=== PATIENT | female | born 1990 | race Caucasian/White ===

== ENCOUNTER 2017-10-06 20:03 | Emergency (ER) | payer MEDICAID, OTHER ==
[~2017-10-06] VITALS: Ht 154.9 cm; Wt 90.7 kg
[2017-10-06] MEDS ORDERED: METOCLOPRAMIDE 10MG TABLET PO ONE (21:30)
[2017-10-06] MEDS ORDERED: PLEASE ENTER ALLERGIES MC SCH (21:30)
[2017-10-06] MEDS ORDERED: IBUPROFEN 200 MG TABLET PO ONE (21:30)
[2017-10-06] MEDS ORDERED: SUMATRIPTAN 6MG/0.5ML SQ ONE ×2 (21:30→21:33)
[2017-10-06] MEDS ORDERED: IBUPROFEN 200 MG TABLET ONE (21:33)
[2017-10-06 22:01] LABS: BASOPHILS # (AUTO) 0.07 x10^3/uL (0-0.1); BASOPHILS % (AUTO) 1 % (0-1); EOSINOPHILS # (AUTO) 0.28 x10^3/uL (0-0.4); EOSINOPHILS % (AUTO) 2 % (1-7); LYMPHOCYTES # (AUTO) 4.31 x10^3/uL (1-3.4); LYMPHOCYTES % (AUTO) 37 % (22-44); MD NO; MEAN CORPUSCULAR HEMOGLOBIN 28.7 pg (27.0-34.8); MEAN CORPUSCULAR HGB CONC 33.4 g/dL (32.4-35.8); MEAN PLATELET VOLUME 8.4 fL (7.4-10.4); MONOCYTES # (AUTO) 0.62 x10^3/uL (0.2-0.8); MONOCYTES % (AUTO) 5 % (2-9); NEUTROPHILS # (AUTO) 6.34 x10^3/uL (1.8-6.8); NEUTROPHILS % (AUTO) 55 % (42-75); PLATELET COUNT 371 x10^3/uL (130-400); RED BLOOD COUNT 5.04 x10^6/uL (3.82-5.3); RED CELL DISTRIBUTION WIDTH 15.2 % (9.6-15.2)
[2017-10-06 22:09] LABS: ANION GAP 8 mmol/L (5-15); CALCIUM 8.6 mg/dL (8.5-10.1); CHLORIDE 111 mmol/L (98-107); CREATININE 0.54 mg/dL (0.55-1.02)
[2017-10-06 22:44] LABS: HCT (SEDRATE) 43.4 % (34.6-47.8)
[2017-10-06 23:48] VITALS: BP 131/88
== END 2017-10-06 23:50 | disposition home or self-care (01) ==
LOC: ED 23:31
DX: H54.62 Unqualified visual loss, left eye, normal vision right eye (principal); G43.119 Migraine with aura, intractable, without status migrainosus; H49.9 Unspecified paralytic strabismus; Z88.0 Allergy status to penicillin; Z88.1 Allergy status to other antibiotic agents
CPT/HCPCS: 36415; 70450; 80048; 82040; 84703; 85025; 85651; 96372; 99285; J3030

== ENCOUNTER 2017-11-24 15:11 | Emergency (ER) | payer MEDICAID ==
[~2017-11-24] VITALS: Ht 154.9 cm; Wt 92.8 kg
[2017-11-24] MEDS ORDERED: SODIUM CHLORIDE FLUSH 10ML SYR IVF ONE (16:00)
[2017-11-24 16:08] LABS: BASOPHILS # (AUTO) 0.04 x10^3/uL (0-0.1); BASOPHILS % (AUTO) 0 % (0-1); EOSINOPHILS # (AUTO) 0.06 x10^3/uL (0-0.4); EOSINOPHILS % (AUTO) 0 % (1-7); LYMPHOCYTES # (AUTO) 2.81 x10^3/uL (1-3.4); LYMPHOCYTES % (AUTO) 18 % (22-44); MD NO; MEAN CORPUSCULAR HGB CONC 34.4 g/dL (32.4-35.8); MEAN CORPUSCULAR VOLUME 87.1 fL (80-100); MEAN PLATELET VOLUME 8.5 fL (7.4-10.4); MONOCYTES # (AUTO) 0.72 x10^3/uL (0.2-0.8); MONOCYTES % (AUTO) 5 % (2-9); NEUTROPHILS # (AUTO) 12.05 x10^3/uL (1.8-6.8); NEUTROPHILS % (AUTO) 77 % (42-75); PLATELET COUNT 327 x10^3/uL (130-400); RED BLOOD COUNT 4.82 x10^6/uL (3.82-5.3); RED CELL DISTRIBUTION WIDTH 14.9 % (9.6-15.2)
[2017-11-24 16:22] LABS: ALBUMIN 3.9 g/dL (3.4-5.0); ANION GAP 7 mmol/L (5-15); CALCIUM 9.1 mg/dL (8.5-10.1); CHLORIDE 107 mmol/L (98-107); CREATININE 0.55 mg/dL (0.55-1.02)
[2017-11-24] MEDS ORDERED: OMNIPAQUE 350 MG/ML, 100ML BOTTLE ONE (17:07)
[2017-11-24] MEDS ORDERED: DEXAMETHASONE 4 MG/ML, 1ML IVPush ONE (18:30)
[2017-11-24] MEDS ORDERED: VANCOMYCIN PER PHARMACY MC PRN (18:30)
[2017-11-24] MEDS ORDERED: PHARMACOKINETIC CONSULTATION MC ONE (18:30)
[2017-11-24] MEDS ORDERED: METRONIDAZOLE PMX 500MG/100ML 100 ML IV ONE (18:30)
[2017-11-24] MEDS ORDERED: CEFAZOLIN PMX 2GM/50ML 50 ML IVPB ONE (18:30)
[2017-11-24] MEDS ORDERED: PHARMACOKINETIC MONITORING MC ONE (18:30)
[2017-11-24] MEDS ORDERED: VANCOMYCIN 1,700 MG in SODIUM CHLORIDE 0.9% 250 ML IV ONE (18:30)
[2017-11-24] MEDS ORDERED: DEXAMETHASONE 4 MG/ML, 5ML ONE (18:49)
[2017-11-24] MEDS ORDERED: METRONIDAZOLE PMX 500MG/100ML 100 ML ONE (20:37)
[2017-11-24 20:40] VITALS: BP 142/79
== END 2017-11-24 21:23 | disposition home or self-care (01) ==
LOC: ED 17:32
DX: K04.7 Periapical abscess without sinus (principal); D72.829 Elevated white blood cell count, unspecified; Z88.0 Allergy status to penicillin; Z88.1 Allergy status to other antibiotic agents
CPT/HCPCS: 36415; 70491; 80048; 82040; 84703; 85025; 96365; 96366; 96375; 99285; J1100; J3370; J7050; Q9967